=== PATIENT | female | born 1940 | race Caucasian/White ===

== ENCOUNTER 2023-08-18 22:38 | Emergency (ER) | payer MEDICARE, OTHER ==
[~2023-08-18] VITALS: Ht 157.5 cm; Wt 53.0 kg
[2023-08-18 22:51] VITALS: BP 117/60
[2023-08-18] MEDS ORDERED: Pantoprazole Sodium 40 MG VIAL (Protonix) IV ONE (22:55)
[2023-08-18 23:00] VITALS: BP 115/64
[2023-08-18] MEDS ORDERED: ATORVASTATIN CA40 MG PO (23:24)
[2023-08-18] MEDS ORDERED: PROTONIX40 M2 PO (23:24)
[2023-08-18 23:31] VITALS: BP 113/66
[2023-08-18 23:41] LABS: BASO% 0.4 % (0-3); EOS% 0.8 % (0-8); HEMATOCRIT 37.7 % (37.0-47.0); HEMOGLOBIN 11.7 g/dl (12.0-16.0); IMMATURE GRANULOCYTES 0.1 % (0.0-5.0); LYMPH% 10.1 % (15-41); MEAN CELL VOLUME 102.2 fL CALC (80.0-100.0); MEAN CORPUSCULAR HGB 31.7 pG CALC (26.0-32.0); MONO% 6.3 % (2-13); NEUT# 12.89 thou/uL (2.00-7.15); NEUT% 82.3 % (42-76); RED BLOOD COUNT 3.69 mill/uL (4.20-5.60); RED CELL DISTRI WIDTH 12.3 % (11.5-15.5)
[2023-08-19] VITALS (8 sets, daily range): BP systolic 98–133; BP diastolic 51–68
[2023-08-19 00:06] LABS: ALBUMIN 4.1 g/dL (3.2-5.0); BILIRUBIN, TOTAL 0.7 mg/dL (0.02-1.3); CREATININE 1.1 mg/dL (0.5-1.0); POTASSIUM 4.9 mmol/l (3.5-5.1); TOTAL PROTEIN 6.4 g/dL (6.3-8.2)
[2023-08-19 00:10] LABS: ACT PARTIAL THROMBO TIME 20.1 SECONDS (20.0-32.5); PROTHROMBIN TIME 9.9 SECONDS (9.0-12.5)
[2023-08-19 00:19] LABS: AMYLASE 75 u/l (30-110)
[2023-08-19] MEDS ORDERED: SODIUM CHLORIDE 0.9% 1,000 ML IV ONE (02:00)
== END 2023-08-19 05:22 ==
LOC: ED 22:38
PROVIDERS: Family Medicine
DX: K50.111 Crohn's disease of large intestine with rectal bleeding (principal); K64.9 Unspecified hemorrhoids
CPT/HCPCS: S0164